=== PATIENT | female | born 1990 | race Two or more races ===

== ENCOUNTER → 2025-02-17 | Day surgery (SDC) | payer OTHER ==
[2025-02-12 14:39] LABS: Hemoglobin 10.4 g/dL (12.2-16.2)
[2025-02-12 14:40] LABS: Hematocrit 32.0 % (36.0-46.0); Mean Corpuscular Hemoglobin 24.8 pg (28.0-32.0); Mean Corpuscular Volume 76.6 fL (80.0-100.0); Nucleated Red Blood Cells % 0.1 %
[2025-02-12 14:51] LABS: INR 0.97 (0.9-1.15); Partial Thromboplastin Time 24.7 SEC (24.5-34.5); Prothrombin Time 10.3 sec (9.3-11.8)
[2025-02-12 14:54] LABS: Urine Protein, UAD Negative (Negative)
[2025-02-12 14:56] LABS: Alanine Aminotransferase 11 U/L (7-40); Alkaline Phosphatase 94 U/L (46-116); Anion Gap 9 (5-15); BUN/Creatinine Ratio 17.4 (10.0-20.0); Blood Urea Nitrogen 15 mg/dL (9-23); Calcium 9.3 mg/dL (8.7-10.4); Carbon Dioxide 26 mmol/L (20-31); Chloride 106 mmol/L (98-107); Glucose 93 mg/dL (74-106); Potassium 4.2 mmol/L (3.5-5.1); Sodium 141 mmol/L (136-145); Total Protein 6.9 g/dL (5.7-8.2)
[2025-02-12 14:57] LABS: Albumin 4.5 g/dL (3.2-4.8)
[2025-02-12 15:00] LABS: Bilirubin, Total 0.3 mg/dL (0.2-1.0)
[~2025-02-17] VITALS: Ht 170.2 cm; Wt 120.2 kg
[~2025-02-17] MED LIST: FAMOTIDINE (10MG/ML) 2ML VL IV ONE; GLYCOPYRROLATE 0.2 MG/ML 1ML VIAL ONE; HYDROmorphone HCL 2 MG/ML VL/or syr IV PRN; HYDROmorphone HCL 2 MG/ML VL/or syr ONE; KETAMINE 50mg/ML 1ml syringe ONE; KETOROLAC TROMETH 30 MG/ML 1ML VIAL ONE; LIDOCAINE 2% (LOCAL ANESTH.) PF 5ml SDV ONE; MIDAZOLAM HCL 2MG/2ML 2ml VIAL (1mg/ml) ONE; ONDANSETRON HCL 4 MG/2 ML VIAL IV ONE; ONDANSETRON HCL 4 MG/2 ML VIAL ONE; PROPOFOL 10 MG/ML 20 ML IV ONE; SUGAMMADEX 200mg/2ml Vial (100MG/ML) IV ONE; fentaNYL CITRATE 100 MCG/2 ML VL ONE
[2025-02-17] MEDS: IOHEXOL 300 MG/ML 100ML BOTTLE IJ ONE (13:35)
[2025-02-17 13:48] VITALS: PULSE 79; RESP 13; TEMP 97.1; O2SAT 96
--- NOTE | 2025-02-17 14:02 | DVHNC2 ---
Procedure - OPERATIVE REPORT Pre-op. Diagnosis: Ureteral Stones - LEFT, distal 2 cm and 1 cm Post-op. Diagnosis: Same as pre-op diagnosis Operation: Ureteroscopy with Laser Lithtripsy of Ureteral stones Cystoscopy with Ureteral stent placement Anesthesia: General Indications: Impacted Ureteral Stones Details of Procedure: The patient was brought to the operating room and placed upon the table. After induction of anesthesia, patient was placed in the lithotomy position. Patient's genitalia and peritoneal regions were prepped and draped in standard surgical fashion. A rigid cystoscope was assembled and introduced into the urinary bladder. A sensor guide wire was placed and ureteroscope was used to access the urethra, bladder and the ureteral orifice. Two large stones was seen in the distal ureter which was fragmented using holmium laser. It took approximately 60 minute of laser time to fragment stone. Ureteroscope advanced to uretero pelvic junction, no other abnormality seen. A ureteral stent 24 cm 6 Welsh was placed and patient was send to PACU in satisfactory condition. Patient tolerated the procedure well. Specimens: None Complications: None Findings: Large distal ureteral stones ARUNA BECERRIL MD Feb 17, 2025 14:02
--- NOTE | 2025-02-17 14:03 | DVHDS2 ---
New Physician D'charge PN Admitting Diagnosis Admitting Diagnosis Left distal ureteral calculi Left hydronephrosis Discharge Diagnosis Same Operations or Procedures Left ureteroscope with laser lithotripsy and left ureteral stent placement Reason(s) For Hospitalization Surgery Treatment Plan Discharge Condition of Discharge Good Disposition Home Discharge Instructions Diet: Regular Activity: No Restrictions, As Tolerated Activity comment: Activity as tolerated Medications: Given Follow Up Care Follow Up/Referral: Cystoscopy with stent removal in 4-6 weeks Discharge Statement: "Patient was advised to return to the ER or call 911 if any headaches, dizziness, shortness of breath, chest pain, abdominal pain, bleeding, fevers, or worsening of medical condition. Patient was counseled about treatment plan, medications, possible side effects, patientverbalized understanding. All questions were answered to the best of my ability. This discharge took greater then 30 minutes in planning, reviewing documentation, counseling the patient, and discussing with other team members." ARUNA BECERRIL MD Feb 17, 2025 14:03
[2025-02-17] MEDS: ACETAMINOPHEN IV 1000 MG/100ML (10MG/ML) IV ONE (14:05)
[2025-02-17] MEDS: ACETAMINOPHEN IV 100 ML IV ONE (14:14)
[2025-02-17] MEDS: CIPROFLOXACIN 400MG/200ML 200 ML IV ONE (14:14)
[2025-02-17] MEDS: METOCLOPRAMIDE HCL 5MG/ml INJ 2ml VIAL IV PRN (14:26)
--- NOTE | 2025-02-17 14:28 | DVH ---
Exam: [id number] [id number] ABDOMEN SINGLE VIEW Indication: left ureteral stone Comparison: None Technique: Supine AP views of the abdomen were performed. Findings: There is a left ureteral stent. Multiple calculi are identified in the region of the left kidney, me asuring up to 19 mm. No abnormal bowel dilatation. Gas is present throughout the colon. There are minerva gical clips in the right upper quadrant consistent with prior cholecystectomy. There are multiple ph leboliths in the pelvis. Impression: 1. Left ureteral stent and left nephrolithiasis. 2. No evidence of bowel obstruction. 3. Postoperative changes of cholecystectomy.
[2025-02-17] MEDS: FAMOTIDINE (10MG/ML) 2ML VL IV ONE (15:04)
[2025-02-17] MEDS: ONDANSETRON HCL 4 MG/2 ML VIAL IV ONE (15:50)
[2025-02-17 16:25] VITALS: BP 127/92; PULSE 82; RESP 12; O2SAT 96
--- NOTE | 2025-02-17 19:30 | DVH ---
C-ARM FLUOROSCOPY: PROCEDURE: Laser lithotripsy. FLUOROSCOPY TIME: 86.4 sec DAP: 45.59 mgy FINDINGS: Spot intraoperative C arm radiographs demonstrating laser lithotripsy.. IMPRESSION: Please refer to surgical report for detailed findings.
== END | disposition home or self-care (01) ==
LOC: SUR 07:27
PROVIDERS: ATTEND Urology
DX: N13.2 Hydronephrosis with renal and ureteral calculous obstruction (principal); Z90.49 Acquired absence of other specified parts of digestive tract
CPT/HCPCS: 36415; 52356; 74018; 76000; 80053; 81001; 81025; 85025; 85610; 85730; C2617; J0744; J1100; J1171; J1885; J2003; J2250; J2405; J2704; J2765; J3010; J3490; Q9967; J0131